=== PATIENT | female | born 1970 | race Caucasian/White ===

== ENCOUNTER 2018-10-15 10:16 | Emergency (ER) | payer MEDICAID, OTHER ==
[~2018-10-15] VITALS: Ht 157.5 cm; Wt 63.5 kg
--- NOTE | 2018-10-15 10:17 | NUR ---
PT AMBULATES TO BED 4
--- NOTE | 2018-10-15 10:18 | NUR ---
Patient being evaluated by physician at bedside.
[2018-10-15] MEDS ORDERED: EPINEPHrine 1:1000 - 1 MG/ML AMP IM ONE (10:20)
[2018-10-15] MEDS ORDERED: NACL 0.9% 1,000 ML IV ONE (10:20)
[2018-10-15] MEDS ORDERED: diphenhydrAMINE 50 MG/ML VIAL IVP ONE (10:20)
[2018-10-15] MEDS ORDERED: FAMOTIDINE 20 MG/2 ML VIAL IVP ONE (10:20)
[2018-10-15] MEDS ORDERED: methylPREDNISolone SS 125 MG/2 ML VIAL IVP ONE (10:20)
--- NOTE | 2018-10-15 10:20 | NUR ---
PT BIB MOTHER TO THE ED WITH THE CHIEF C/O ALLERGIC REACTION AFTER EATING SEAFOOD 15 MIN AGO. PT REPORTED DIFFICULTY BREATHING AND NAUSEATED. NO SWOLLEN LIPS OR TONGUE NOTED. A/O X4. HAS HX OF ASTHMA. PLACED ON MONITOR. VSS. STARTED IV LINE.
--- NOTE | 2018-10-15 10:41 | NUR ---
PT VERBALIZED FEELING BETTER. SATURATING 100% IN ROOM AIR.
--- NOTE | 2018-10-15 12:20 | NUR ---
PATIENT STATED FEELS LIKE THERES A BALL ON HER THROAT. NO SOB, TALKING APPROPRIATELY. NO RESP. DISTRESS. ERMD MADE AWARE
--- NOTE | 2018-10-15 12:26 | NUR ---
DR. GUERRA SEEN PATIENT AND SPOKE TO FAMILY. OFFERED WATER TO PATIENT FOR THROAT DRYNESS
--- NOTE | 2018-10-15 13:47 | NUR ---
PT APPEARS TO BE RELAXED AND RESTING IN BED. MOTHER AT THE BEDSIDE. NO C/O DIFFICULTY BREATHING OR PAIN AT THIS TIME.
--- NOTE | 2018-10-15 14:47 | NUR ---
Patient discharged with v/s stable. Written and verbal after care instructions given and explained. Patient alert, oriented and verbalized understanding of instructions. Ambulatory with steady gait. All questions addressed prior to discharge. ID band removed. Patient advised to follow up with PMD. Rx of EPIPEN, PEPCID, PREDNISONE AND BENADRYL given. Patient educated on indication of medication including possible reaction and side effects. Opportunity to ask questions provided and answered.
[2018-10-15 14:52] VITALS: BP 115/58
== END 2018-10-15 14:47 | disposition home or self-care (01) ==
LOC: MED 10:16
DX: T78.1XXA Other adverse food reactions, not elsewhere classified, initial encounter (principal); J45.909 Unspecified asthma, uncomplicated; Z88.0 Allergy status to penicillin; X58.XXXA Exposure to other specified factors, initial encounter
CPT/HCPCS: 96374; 96375; 99283; J0171; J1200; J2930; J3490; J7030

== ENCOUNTER 2019-01-15 11:33 | Emergency (ER) | payer OTHER ==
[~2019-01-15] VITALS: Ht 157.5 cm; Wt 72.1 kg
[2019-01-15 11:44] VITALS: BP 123/73
--- NOTE | 2019-01-15 11:51 | NUR ---
PATIENT WHEELCHAIR ASSISTED TO BED 6
--- NOTE | 2019-01-15 12:00 | NUR ---
PT C/O LEFT LOWER LEG PAIN 8/10 SHARP AND THROBBING FOR 2 DAYS. PAIN FROM LEFT KNEE RADIATES TO LEFT TOES. PT STATES SHE WAS WALKING INSIDE HER HOME AND TRIPPED ON A STEP, AND FELL FORWARD AND HIT HER LEFT KNEE. PT HAS FOOT WRAPPED IN [place] BANDAGE AT THIS TIME. DENIES N/V/D; SKIN IS PINK/WARM/DRY; AAOX4; PT DENIES ANY FEVER, CP, SOB, OR COUGH AT THIS TIME; PATIENT STATES PAIN OF 8/10 AT THIS TIME; VSS; EDEMA +1 AROUN LEFT KNEE WITHOUT ERYTHEMA NOTICED. PATIENT POSITIONED FOR COMFORT; HOB ELEVATED; BEDRAILS UP X1; BED DOWN. ER MD MADE AWARE OF PT STATUS.
--- NOTE | 2019-01-15 12:00 | NUR ---
Note undone in EDM - 01/15/19 at 1319 by MED PT C/O LEFT LOWER LEG PAIN 8/10 SHARP AND THROBBING FOR 2 DAYS. PAIN FROM LEFT KNEE RADIATES TO LEFT TOES. PT STATES SHE WAS WALKING INSIDE HER HOME AND TRIPPED ON A STEP, AND FELL FORWARD AND HIT HER LEFT KNEE. PT HAS FOOT WRAPPED IN [place] BANDAGE AT THIS TIME. DENIES N/V/D; SKIN IS PINK/WARM/DRY; AAOX4 WITH EVEN AND STEADY GAIT; PT DENIES ANY FEVER, CP, SOB, OR COUGH AT THIS TIME; PATIENT STATES PAIN OF 8/10 AT THIS TIME; VSS; EDEMA +1 AROUN LEFT KNEE WITHOUT ERYTHEMA NOTICED. PATIENT POSITIONED FOR COMFORT; HOB ELEVATED; BEDRAILS UP X1; BED DOWN. ER MD MADE AWARE OF PT STATUS.
--- NOTE | 2019-01-15 13:42 | NUR ---
PLACED KNEE IMMOBILIZER ON PATIENT. SIZED CRUTCHES TO PATIENT
[2019-01-15 13:49] VITALS: BP 113/63
--- NOTE | 2019-01-15 13:50 | NUR ---
Patient discharged with v/s stable. Written and verbal after care instructions given and explained. Patient alert, oriented and verbalized understanding of instructions. Ambulatory with steady gait using crutches. All questions addressed prior to discharge. ID band removed. Patient advised to follow up with PMD. Rx of naprosyn given. Patient educated on indication of medication including possible reaction and side effects. Opportunity to ask questions provided and answered.
== END 2019-01-15 13:50 | disposition home or self-care (01) ==
LOC: MED 11:33
DX: S86.812A Strain of other muscle(s) and tendon(s) at lower leg level, left leg, initial encounter (principal); J45.909 Unspecified asthma, uncomplicated; Z88.0 Allergy status to penicillin; Z91.018 Allergy to other foods; W01.0XXA Fall on same level from slipping, tripping and stumbling without subsequent striking against object, initial encounter; Y93.01 Activity, walking, marching and hiking; Y92.89 Other specified places as the place of occurrence of the external cause; Y99.8 Other external cause status
CPT/HCPCS: 29505; 73562; 73590; 99283

== ENCOUNTER 2019-02-12 14:58 | Emergency (ER) | payer OTHER ==
[~2019-02-12] VITALS: Ht 160 cm; Wt 71.7 kg
[2019-02-12 14:59] VITALS: BP 114/56
[2019-02-12 15:00] VITALS: BP 114/56
--- NOTE | 2019-02-12 15:10 | NUR ---
Patient transferred to bed 7 via wheelchair. RN evaluating patient at bedside.
--- NOTE | 2019-02-12 15:17 | NUR ---
48 Y FEMALE REFERRED FROM CLINIC FOR MRI. C/O CONSTANT LEFT FOOT PAIN RADIATING TO LEFT HIP S/P MECHANICAL FALL X 1 MONTH. +ROM WITH PAIN 8/10. +L PEDAL PULSE. +CAP REFILL <3 SECONDS. PT INSTRUCTED THAT [facility] DOES NOT PROVIDE MRI SERVICES. VSS AT THIS TIME. AA0X4. BED IS DOWN, LOCKED, BED RAIL X 1, ERMD TO SEE PT. MED HX: DENIES
--- NOTE | 2019-02-12 15:18 | NUR ---
Dr. Goodman evaluating patient at bedside.
[2019-02-12] MEDS ORDERED: KETOROLAC 60 MG/2 ML VIAL IM ONE (15:25)
--- NOTE | 2019-02-12 15:29 | NUR ---
TORADOL IM ADMINISTERED IN PTS L DELTOID
--- NOTE | 2019-02-12 16:15 | NUR ---
PAIN 4/10. DR LOPEZ RE-EVALUATING PT
--- NOTE | 2019-02-12 16:18 | NUR ---
Patient discharged BY DR LOPEZ. Written and verbal after care instructions given and explained BY DR LOPEZ. Patient alert, oriented and Ambulatory with steady gait. ID band removed. Patient advised to follow up with PMD REGARDING MRI. Rx of NAPROSYN given.
== END 2019-02-12 16:18 | disposition home or self-care (01) ==
LOC: MED 14:58
DX: M54.42 Lumbago with sciatica, left side (principal); J45.909 Unspecified asthma, uncomplicated; Z88.0 Allergy status to penicillin
CPT/HCPCS: 96372; 99283; J1885

== ENCOUNTER 2021-11-08 21:10 | Emergency (ER) | payer OTHER ==
[~2021-11-08] VITALS: Ht 157.5 cm; Wt 66.3 kg
[2021-11-08 21:23] VITALS: BP 107/58
[2021-11-08] MEDS ORDERED: diphenhydrAMINE 50 MG CAP PO ONE (21:35)
[2021-11-09 00:24] VITALS: BP 113/64
[2021-11-09] MEDS ORDERED: PRED20TA5 PO (00:29)
[2021-11-09] MEDS ORDERED: MIRABULK PO (00:29)
--- NOTE | 2021-11-09 00:41 | NUR ---
d/c with VSS. d/c education given. opportunity to to ask questions given and answered. rx of prednisone and miralax given.
== END 2021-11-09 00:41 | disposition home or self-care (01) ==
LOC: MED 21:10
DX: T78.49XA Other allergy, initial encounter (principal); K59.00 Constipation, unspecified; J45.909 Unspecified asthma, uncomplicated; Z90.710 Acquired absence of both cervix and uterus; Z88.0 Allergy status to penicillin; Z91.013 Allergy to seafood; X58.XXXA Exposure to other specified factors, initial encounter
CPT/HCPCS: 99283; Q0163

== ENCOUNTER 2022-01-09 20:40 | Emergency (ER) | payer OTHER ==
[~2022-01-09] VITALS: Ht 157.5 cm; Wt 67.1 kg
[~2022-01-09 20:40] MED LIST: MIRABULK PO; PRED20TA5 PO
[2022-01-09 21:36] VITALS: BP 123/78
--- NOTE | 2022-01-09 21:42 | NUR ---
ER MD ASSESSING PT AT THIS TIME IN TRIAGE
--- NOTE | 2022-01-09 21:44 | NUR ---
PT TAKEN TO BED 10
[2022-01-09] MEDS ORDERED: NACL 0.9% 1,000 ML IV ONE (21:45)
[2022-01-09] MEDS ORDERED: KETOROLAC 30 MG/ML VIAL IVP ONE (21:45)
[2022-01-09] MEDS ORDERED: ONDANSETRON 4 MG/2 ML VIAL IVP ONE (21:45)
--- NOTE | 2022-01-09 21:57 | NUR ---
51 YO F BIBS W C/O VOMITING, NO BLOOD SINCE THIS MORNING. HEADACHE, FATIGUE. TOOK X3 EXCEDRIN AT 1700. PARTIAL HYSTERECTOMY ALL: PCN, SEAFOOD, IODINE
[2022-01-09 22:22] LABS: BASOPHILS % (AUTO) 0.4 % (0.0-2.0); EOSINOPHILS # (AUTO) 0.2 K/uL (0-0.4); EOSINOPHILS % (AUTO) 2.9 % (0.0-4.0); HEMATOCRIT 40.5 % (36-48); HEMOGLOBIN 13.2 g/dL (12.0-16.0); LYMPHOCYTES # (AUTO) 0.7 K/uL (2.5-16.5); MEAN CORPUSCULAR HEMOGLOBIN 30 pg (27-31); MEAN CORPUSCULAR HGB CONC 33 g/dL (33-37); MEAN CORPUSCULAR VOLUME 91.8 fL (80-94); MONOCYTES # (AUTO) 0.3 K/uL (0.8-1.0); MONOCYTES % (AUTO) 4.7 % (1.7-9.3); NEUTROPHILS # (AUTO) 6.1 K/uL (1.8-7.7); PLATELET COUNT (AUTO) 215 K/uL (140-450); RED BLOOD CELL COUNT(AUTO) 4.41 MIL/uL (4.20-5.40); RED CELL DISTRIBUTION WIDTH 13.5 % (11.6-13.7); WHITE BLOOD COUNT (AUTO) 7.3 K/uL (4.8-10.8)
[2022-01-09 22:38] LABS: ALBUMIN 3.6 g/dL (3.4-5.0); ANION GAP 10.6 (8-16); CARBON DIOXIDE 28.2 mmol/L (21-32); CREATININE 0.8 mg/dL (0.6-1.3); POTASSIUM 3.8 mmol/L (3.5-5.1); TOTAL BILIRUBIN 0.4 mg/dL (0.0-1.0)
--- NOTE | 2022-01-09 23:40 | NUR ---
PATIENT MOBILIZED TO RESTROOM
[2022-01-10 00:13] LABS: APPEARANCE,URINE CLEAR (CLEAR); BILIRUBIN,URINE NEGATIVE (NEGATIVE); BLOOD, URINE NEGATIVE (NEGATIVE); COLOR,URINE YELLOW (YELLOW); LEUKOCYTE ESTERASE ,URINE TRACE (NEGATIVE); NITRITE, URINE NEGATIVE (NEGATIVE); UGLUCOSE NEGATIVE (NEGATIVE)
[2022-01-10 00:41] LABS: RBC,URINE 0-5 /HPF (0-5); WBC,URINE 0-5 /HPF (0-5)
[2022-01-10 00:42] LABS: YEAST,URINE Moderate /HPF (None Seen)
[2022-01-10 01:05] VITALS: BP 120/72
[2022-01-10] MEDS ORDERED: ONDA-188 SL (01:05)
--- NOTE | 2022-01-10 01:05 | NUR ---
Patient discharged with v/s stable. Written and verbal after care instructions given and explained. Patient alert, oriented and verbalized understanding of instructions. Ambulatory with steady gait. All questions addressed prior to discharge. ID band removed. Patient advised to follow up with PMD. Rx of ZOFRAN given. Patient educated on indication of medication including possible reaction and side effects. Opportunity to ask questions provided and answered. VSS, A/OX4, AMBULATORY, UNLABORED BREATHING, AND CALM DEMEANOR.
== END 2022-01-10 01:05 | disposition home or self-care (01) ==
LOC: MED 20:40
DX: A08.4 Viral intestinal infection, unspecified (principal); J45.909 Unspecified asthma, uncomplicated; Z88.0 Allergy status to penicillin; Z91.013 Allergy to seafood; Z90.711 Acquired absence of uterus with remaining cervical stump
CPT/HCPCS: 36415; 80053; 81001; 85025; 96361; 96374; 96375; 99284; J1885; J2405; J7030